=== PATIENT | male | born 1940 ===

== ENCOUNTER 2023-06-15 09:13 | Inpatient (IN) ==
[2023-06-15] MEDS ORDERED: IOPAMIDOL 100 ML BOTTLE IV ONE (09:14)
[2023-06-15 11:08] LABS: Basophils # (Auto) 0.01 K/mcL (0.00-0.30); Basophils % (Auto) 0.2 % (0.0-2.0); Eosinophils # (Auto) 0 K/mcL (0.00-0.70); Eosinophils % (Auto) 0 % (0.0-7.0); Hematocrit 37.1 % (40.1-51.0); Hemoglobin 11.5 g/dL (13.7-17.5); Lymphocytes # (Auto) 0.61 K/mcL (1.50-4.80); Lymphocytes % (Auto) 11.2 % (15.5-49.0); Mean Cell Volume 96.6 fL (80.0-100.0); Mean Platelet Volume 9.2 fL (8.8-12.5); Monocytes # (Auto) 0.59 K/mcL (0.10-0.90); Monocytes % (Auto) 10.8 % (1.0-12.0); Neutrophils % (Auto) 76.7 % (38.0-78.0); Platelet Count 175 K/mcL (140-440); RBC 3.84 M/mcL (4.63-6.08); Red Cell Distribution Width 16.6 % (11.5-14.5); WBC 5.5 K/mcL (4.5-11.0)
[2023-06-15 11:33] LABS: Creatine Kinase 69 U/L (24-195)
[2023-06-15 11:50] LABS: ALT/SGPT 135 U/L (<40); AST/SGOT 58 U/L (<40); Albumin 3.4 gm/dL (3.2-5.2); Albumin/Globulin Ratio 1.1 (1.0-2.3); Alkaline Phosphatase 510 U/L (39-117); Bilirubin,Total 1.2 mg/dL (0.1-1.0); Blood Urea Nitrogen 17 mg/dL (8-23); Calcium 9.1 mg/dL (8.6-10.4); Carbon Dioxide 28 mmol/L (22-30); Chloride 99 mmol/L (96-108); Glomerular Filtration Rate 80; Glucose 156 mg/dL (70-105)
[2023-06-15] MEDS: FUROSEMIDE 20 MG/2 ML VIAL IV ONE (11:57)
[2023-06-15] MEDS: ASPIRIN 81 MG TAB.CHEW CHEWED ONE (11:57)
[2023-06-15 12:02] LABS: ABG Methemoglobin 0.3 % (0.4-1.5); Total Hemoglobin 12.5 gm/Dl (13.5-16.5); VBG Base Excess 4 (-2-3); VBG HCO3 28.8 mmol/L (24.0-28.0); VBG Oxygen Saturation 69.6 % (40.0-70.0); VBG PCO2 46.3 mmHg (41.0-51.0); VBG PH 7.41 U (7.32-7.42); VBG PO2 39.3 mmHg (25.0-40.0); VBG Total CO2 30.2 mmol/L (25.0-29.0)
[2023-06-15 12:54] LABS: INR 1.1 (0.9-1.1); Prothrombin Time 14.9 sec (11.9-14.5)
[2023-06-15 16:33] LABS: Appearance,Urine Clear (Clear); Bacteria,Urine 0 /hpf (0); Bilirubin,Urine Negative (Negative); Color,Urine Yellow; Culture Indicated,Urine No; Glucose,Urine (UA) Negative (Negative); Ketones,Urine Negative (Negative); Leukocyte Esterase,Urine Negative /uL (Negative); Nitrate,Urine Negative (Negative); Protein,Urine 30 mg/dL (Negative); Specific Gravity,Urine 1.015 (1.000-1.035); Urine Blood Negative ery/mcL (Negative); Urine RBC 0 /hpf (0-3); Urine Squamous Epithelial Cell 0 /hpf (0-4); Urine WBC 1 /hpf (0-4); Urobilinogen,Urine Normal
[2023-06-15] MEDS: fentaNYL 100 MCG/2 ML VIAL IV ONE (16:37)
[2023-06-15] MEDS ORDERED: ONDANSETRON 4 MG/2 ML VIAL IV PRN (17:07)
[2023-06-15] MEDS ORDERED: POTASSIUM CHLORIDE 40 MEQ in DEXTROSE 5% IN WATER 500 ML IV PRN (17:07)
[2023-06-15] MEDS ORDERED: DEXTROSE 50% 50 ML VIAL IV PRN (17:07)
[2023-06-15] MEDS ORDERED: POLYETHYLENE GLYCOL 3350 17 GM PACKET PO PRN (17:07)
[2023-06-15] MEDS ORDERED: IPRATROPIUM/ALBUTEROL 3 ML AMPUL.NEB NEB PRN (17:07)
[2023-06-15] MEDS ORDERED: POTASSIUM CHLORIDE 20 MEQ TABLET PO PRN (17:07)
[2023-06-15] MEDS ORDERED: SENNOSIDES 1 TABLET PO PRN (17:07)
[2023-06-15] MEDS ORDERED: METHOCARBAMOL 1,000 MG/10 ML VIAL IV PRN (17:07)
[2023-06-15] MEDS ORDERED: MAGNESIUM SULFATE 2 GM/50 ML BAG IV PRN (17:07)
[2023-06-15] MEDS: INSULIN LISPRO 1 UNIT/0.01 ML UNIT SQ SCH (17:50)
[2023-06-15] MEDS: fentaNYL 12 MCG PATCH TOPICAL SCH (18:20)
[2023-06-15] MEDS: ACETAMINOPHEN 325 MG TABLET PO SCH (18:20)
[2023-06-15] MEDS: DOCUSATE SODIUM 100 MG CAPSULE PO SCH (20:03)
[2023-06-15] MEDS: METOPROLOL TARTRATE 25 MG TABLET PO SCH (20:04)
[2023-06-15] MEDS: LABETALOL HCL 20 MG/4 ML VIAL IV PRN (22:07)
[2023-06-16] MEDS: 0.9 % SODIUM CHLORIDE 10 ML SYRINGE IV SCH (05:59)
[2023-06-16 07:07] LABS: Basophils # (Auto) 0.02 K/mcL (0.00-0.30); Basophils % (Auto) 0.3 % (0.0-2.0); Eosinophils # (Auto) 0.05 K/mcL (0.00-0.70); Eosinophils % (Auto) 0.7 % (0.0-7.0); Hematocrit 39.8 % (40.1-51.0); Hemoglobin 11.8 g/dL (13.7-17.5); Lymphocytes # (Auto) 1.02 K/mcL (1.50-4.80); Lymphocytes % (Auto) 14.6 % (15.5-49.0); Mean Cell Volume 102.3 fL (80.0-100.0); Mean Corpuscular HGB Conc 29.6 g/dL (31.0-36.0); Mean Platelet Volume 9.6 fL (8.8-12.5); Monocytes # (Auto) 0.87 K/mcL (0.10-0.90); Monocytes % (Auto) 12.4 % (1.0-12.0); Neutrophils % (Auto) 71.6 % (38.0-78.0); Platelet Count 173 K/mcL (140-440); RBC 3.89 M/mcL (4.63-6.08); Red Cell Distribution Width 16.6 % (11.5-14.5)
[2023-06-16 07:30] LABS: ALT/SGPT 161 U/L (<40); AST/SGOT 132 U/L (<40); Albumin 3.2 gm/dL (3.2-5.2); Albumin/Globulin Ratio 1.1 (1.0-2.3); Alkaline Phosphatase 617 U/L (39-117); Bilirubin,Direct 0.6 mg/dL (<0.3); Bilirubin,Total 0.9 mg/dL (0.1-1.0); Blood Urea Nitrogen 22 mg/dL (8-23); Calcium 8.8 mg/dL (8.6-10.4); Carbon Dioxide 29 mmol/L (22-30); Chloride 100 mmol/L (96-108); Globulin 2.8 gm/dL (2.2-3.7); Glomerular Filtration Rate 71; Glucose 113 mg/dL (70-105); Lactate Dehydrogenase 307 U/L (135-225); Phosphorous 4.3 mg/dL (2.5-4.5); Triglycerides 52 mg/dL (<150); Uric Acid 10.4 mg/dL (2.5-8.0)
[2023-06-16] MEDS: 0.9 % SODIUM CHLORIDE 1,000 ML IV SCH (08:19)
[2023-06-16] MEDS: ENOXAPARIN 40 MG/0.4 ML SYRINGE SQ SCH (08:19)
[2023-06-16] MEDS: POTASSIUM CHLORIDE 20 MEQ TABLET PO PRN (20:49)
[2023-06-17] MEDS: METOPROLOL TARTRATE 5 MG/5 ML VIAL IV PRN (00:42)
[2023-06-17 06:10] LABS: Basophils # (Auto) 0.01 K/mcL (0.00-0.30); Basophils % (Auto) 0.1 % (0.0-2.0); Eosinophils # (Auto) 0.02 K/mcL (0.00-0.70); Eosinophils % (Auto) 0.3 % (0.0-7.0); Hematocrit 42.7 % (40.1-51.0); Hemoglobin 12.7 g/dL (13.7-17.5); Lymphocytes # (Auto) 0.83 K/mcL (1.50-4.80); Lymphocytes % (Auto) 11.2 % (15.5-49.0); Mean Cell Volume 101.7 fL (80.0-100.0); Mean Corpuscular HGB Conc 29.7 g/dL (31.0-36.0); Mean Platelet Volume 9.5 fL (8.8-12.5); Monocytes # (Auto) 0.67 K/mcL (0.10-0.90); Neutrophils % (Auto) 78.7 % (38.0-78.0); Platelet Count 181 K/mcL (140-440); Red Cell Distribution Width 16.5 % (11.5-14.5); WBC 7.4 K/mcL (4.5-11.0)
[2023-06-17 06:24] LABS: ALT/SGPT 156 U/L (<40); AST/SGOT 114 U/L (<40); Albumin 3.3 gm/dL (3.2-5.2); Albumin/Globulin Ratio 1.1 (1.0-2.3); Alkaline Phosphatase 653 U/L (39-117); Bilirubin,Total 1.2 mg/dL (0.1-1.0); Blood Urea Nitrogen 24 mg/dL (8-23); Carbon Dioxide 29 mmol/L (22-30); Chloride 98 mmol/L (96-108); Glomerular Filtration Rate 71; Glucose 138 mg/dL (70-105)
[2023-06-17] MEDS: HYDROcodone/APAP 5/325MG TABLET PO PRN (06:34)
[2023-06-17] MEDS: METHOCARBAMOL 750 MG TABLET PO PRN (20:07)
[2023-06-17] MEDS: INSULIN GLARGINE, HUMAN 1 UNIT/0.01 ML SQ SCH (20:11)
[2023-06-17] MEDS: APIXABAN 5 MG TABLET PO SCH (20:14)
[2023-06-17] MEDS ORDERED: METOPROLOL TARTRATE 25 MG TABLET PO SCH (21:00)
[2023-06-17] MEDS ORDERED: [UNRECOGNIZED DRUG - OTHER] PO SCH (21:00)
[2023-06-18] MEDS: DEXTROSE 31 GM ORAL.SUSP PO PRN (01:58)
[2023-06-18 07:16] LABS: Basophils # (Auto) 0.02 K/mcL (0.00-0.30); Basophils % (Auto) 0.2 % (0.0-2.0); Eosinophils # (Auto) 0.01 K/mcL (0.00-0.70); Eosinophils % (Auto) 0.1 % (0.0-7.0); Hematocrit 43.4 % (40.1-51.0); Lymphocytes # (Auto) 0.73 K/mcL (1.50-4.80); Mean Cell Volume 100.5 fL (80.0-100.0); Mean Platelet Volume 9.7 fL (8.8-12.5); Monocytes # (Auto) 0.82 K/mcL (0.10-0.90); Neutrophils % (Auto) 82.3 % (38.0-78.0); Platelet Count 202 K/mcL (140-440); RBC 4.32 M/mcL (4.63-6.08); Red Cell Distribution Width 16.4 % (11.5-14.5); WBC 9.1 K/mcL (4.5-11.0)
[2023-06-18 07:33] LABS: ALT/SGPT 272 U/L (<40); AST/SGOT 277 U/L (<40); Albumin 3.4 gm/dL (3.2-5.2); Alkaline Phosphatase 962 U/L (39-117); Blood Urea Nitrogen 25 mg/dL (8-23); Carbon Dioxide 30 mmol/L (22-30); Chloride 99 mmol/L (96-108); Globulin 3.3 gm/dL (2.2-3.7); Glomerular Filtration Rate 80; Glucose 40 mg/dL (70-105)
[2023-06-18] MEDS: CETIRIZINE 10 MG TABLET PO SCH (08:17)
[2023-06-18] MEDS: ATORVASTATIN 20 MG TABLET PO SCH (08:17)
[2023-06-19 06:52] LABS: Basophils # (Auto) 0.02 K/mcL (0.00-0.30); Basophils % (Auto) 0.1 % (0.0-2.0); Eosinophils # (Auto) 0.02 K/mcL (0.00-0.70); Eosinophils % (Auto) 0.1 % (0.0-7.0); Hematocrit 37.9 % (40.1-51.0); Hemoglobin 11.5 g/dL (13.7-17.5); Lymphocytes # (Auto) 1.14 K/mcL (1.50-4.80); Lymphocytes % (Auto) 7.7 % (15.5-49.0); Mean Cell Volume 100.5 fL (80.0-100.0); Mean Corpuscular HGB Conc 30.3 g/dL (31.0-36.0); Mean Platelet Volume 10.2 fL (8.8-12.5); Monocytes # (Auto) 1.01 K/mcL (0.10-0.90); Monocytes % (Auto) 6.8 % (1.0-12.0); Neutrophils % (Auto) 85.1 % (38.0-78.0); Platelet Count 161 K/mcL (140-440); RBC 3.77 M/mcL (4.63-6.08); Red Cell Distribution Width 16.6 % (11.5-14.5); WBC 14.8 K/mcL (4.5-11.0)
[2023-06-19 07:15] LABS: ALT/SGPT 153 U/L (<40); AST/SGOT 101 U/L (<40); Albumin 3.1 gm/dL (3.2-5.2); Albumin/Globulin Ratio 1.1 (1.0-2.3); Alkaline Phosphatase 672 U/L (39-117); Bilirubin,Total 1.1 mg/dL (0.1-1.0); Blood Urea Nitrogen 23 mg/dL (8-23); Calcium 8.8 mg/dL (8.6-10.4); Carbon Dioxide 30 mmol/L (22-30); Chloride 99 mmol/L (96-108); Globulin 2.7 gm/dL (2.2-3.7); Glomerular Filtration Rate 80; Glucose 143 mg/dL (70-105)
[2023-06-19] MEDS: BISACODYL 10 MG SUPP.RECT PR PRN (13:35)
[2023-06-19] MEDS: BISACODYL 10 MG SUPP.RECT PR ONE (13:40)
[2023-06-19] MEDS: guaiFENesin 600 MG TAB.SR.12H PO SCH (20:59)
[2023-06-20 06:44] LABS: Basophils # (Auto) 0.01 K/mcL (0.00-0.30); Basophils % (Auto) 0.1 % (0.0-2.0); Eosinophils # (Auto) 0.07 K/mcL (0.00-0.70); Eosinophils % (Auto) 0.7 % (0.0-7.0); Hematocrit 37.1 % (40.1-51.0); Hemoglobin 11.4 g/dL (13.7-17.5); Lymphocytes # (Auto) 1.17 K/mcL (1.50-4.80); Lymphocytes % (Auto) 12.2 % (15.5-49.0); Mean Cell Volume 98.9 fL (80.0-100.0); Mean Corpuscular HGB Conc 30.7 g/dL (31.0-36.0); Mean Platelet Volume 9.5 fL (8.8-12.5); Monocytes # (Auto) 0.88 K/mcL (0.10-0.90); Monocytes % (Auto) 9.2 % (1.0-12.0); Neutrophils % (Auto) 77.5 % (38.0-78.0); Platelet Count 165 K/mcL (140-440); RBC 3.75 M/mcL (4.63-6.08); Red Cell Distribution Width 16.5 % (11.5-14.5); WBC 9.6 K/mcL (4.5-11.0)
[2023-06-20 07:02] LABS: ALT/SGPT 116 U/L (<40); AST/SGOT 66 U/L (<40); Albumin 3.1 gm/dL (3.2-5.2); Alkaline Phosphatase 580 U/L (39-117); Bilirubin,Total 1.1 mg/dL (0.1-1.0); Blood Urea Nitrogen 23 mg/dL (8-23); Calcium 8.9 mg/dL (8.6-10.4); Carbon Dioxide 28 mmol/L (22-30); Chloride 97 mmol/L (96-108); Glomerular Filtration Rate 89; Glucose 131 mg/dL (70-105)
[2023-06-20] MEDS: fentaNYL 12 MCG PATCH TOPICAL SCH (10:51)
[2023-06-20] MEDS: IBUPROFEN 600 MG TABLET PO PRN (12:38)
== END 2023-06-20 13:22 | DRG 552 ==
LOC: ED 09:13 → ICU 17:00 → MEDSUR 06-17 23:22
PROVIDERS: ADMIT Internal Medicine; ATTEND Internal Medicine